=== PATIENT | female | born 1945 | race Caucasian/White ===

== ENCOUNTER → 2016-10-06 | Outpatient (CLI) | payer OTHER ==
--- NOTE | 2016-10-06 15:23 | MA ---
Right Diagnostic Mammogram Indication: Right breast invasive lobular carcinoma diagnosed in January 2016. Six-month post lumpecto my evaluation. Technique: 2D CC, synthesized 2D MLO, and diagnostic MLO tomosynthesis acquisition of the right [address]. The mammograms were processed with iCAD analysis. Breast Density: Type B Comparison: Screening and diagnostic mammograms dating back to December 2011. Findings: A benign lumpectomy scar resides in the upper inner right breast. No round circumscribed hematoma. The right breast has expected minimal skin thickening from radiation therapy. No new mass or malignant-type calcification. Impression: Benign lumpectomy scar upper inner right breast. BI-RADS 2: Benign Finding. Recommendation: Bilateral screening mammography due in January 2017, unless otherwise clinically indica rajat. 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
== END ==
LOC: FIMAGING 14:04
PROVIDERS: ATTEND Surgery
DX: C50.011 Malignant neoplasm of nipple and areola, right female breast (principal); Z98.890 Other specified postprocedural states
CPT/HCPCS: G0206

== ENCOUNTER 2016-11-26 05:49 | Day surgery (SDC) | payer OTHER ==
--- NOTE | 2016-11-25 11:42 | GHP ---
[f rep st] PREOP HISTORY AND PHYSICAL DATE OF PROCEDURE: 11/26/2016. PROCEDURE: Hysteroscopy with morcellation of endometrial tissue. INDICATION: Postmenopausal bleeding. HISTORY OF PRESENT ILLNESS: The patient is a 71-year-old 1, para 1-0-0-1, who has been on h ormone replacement since menopause, until she was diagnosed with stage IA invasive lobular carcinoma in 01/2016. Patient underwent discontinued hormone replacement at that time and she underwent a jose mpectomy plus radiation. Her sentinel node biopsy was negative. Patient was started on aromatase inhibitor and ultimately switched to letrozole. The patient starte d having bright red vaginal bleeding in 10/2014. She came in for a pelvic ultrasound. It showed a uterus measuring 9 x 5.8 x 6.3 cm with an endometrium measuring 0.95 cm, which is slightly cystic in appearance. She has an anterior submucosal fibroid measuring 1.6 x 1.5 x 1.6 cm and a posterior christy bserosal fibroid measuring 1.7 x 1.9 x 2 cm. Her right ovary has 2 small simple follicle-like areas measuring 5 mm each. The left ovary has a simple area measuring 12 x 12 x 10 mm. Management options have been reviewed extensively with the patient, including endometrial biopsy wit hin the office and hysteroscopy with morcellation of endometrial tissue. Patient wishes to proceed with a hysteroscopy with morcellation of endometrial tissue. Risks and benefits of the procedure rivera ve been extensively reviewed with the patient. The patient has been properly consented. MEDICAL HISTORY: Obesity, endometriosis, stage IA invasive lobular breast carcinoma diagnosed in , hypertension, hypothyroidism, hyperlipidemia, gout, history of gastric ulcer, type 2 diabetes. MEDICATIONS: Levothyroxine 150 mcg a day. Lipitor 10 mg a day. Lisinopril 20 mg a day. Hydrochlo rothiazide/triamterene 25 mg/37.5 mg. Pantoprazole 20 mg a day. Allopurinol 300 mg a day. Letrozo le 2.5 mg a day. The patient takes a baby aspirin a day, as well as vitamin D. She takes Xanax and Nasacort as needed, as well as muscle relaxers and tramadol as needed. SURGICAL HISTORY: Patient has had a breast lumpectomy, laparoscopy with ablation of endometriosis, laparoscopic myomectomy x2, multiple colonoscopies, foot surgery, tonsillectomy and adenoidectomy, a nd tubal ligation. ALLERGIES: No known drug allergies. SOCIAL HISTORY: Patient is . She denies tobacco or drug use. She does 1 or 2 alcoholic janel erages a month. FAMILY MEDICAL HISTORY: Noncontributory. 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 She had a spontaneous vaginal delivery in 1966, uncomplicated . The patient denies any history of any abnormal Pap smears or sexually lopez smitted diseases. PHYSICAL EXAM: VITAL SIGNS: Stable. Her weight is 206.2. Her blood pressure is 104/60. Her hear t rate is regular regular. GENERAL APPEARANCE: Alert and oriented x3. LUNGS: Clear to auscultati on bilaterally. ABDOMEN: Obese, soft, nondistended, nontender. EXTREMITIES: Reveal no calf tende rness or edema. PELVIC: Exam was deferred at this time. However, was performed at the end of last year, which showed a mobile midposition uterus with no adnexal masses. Pelvic ultrasound was descr ibed above. ASSESSMENT AND PLAN: A 71-year-old, 1, para 1-0-0-1, with postmenopausal bleeding and a thi ckened endometrium. She will undergo a hysteroscopy with morcellation of endometrial tissue. She i s aware that if the pathology is abnormal, she will need to have further procedures done at that [facility] /[id number]/MODL
[2016-11-26] MEDS ORDERED: LIDOCAINE 1% 2 ML INJ ONE (06:30)
[2016-11-26] MEDS ORDERED: LIDOCAINE 1% 5 ML SDV ID PRN (06:57)
[2016-11-26] MEDS ORDERED: LR 1,000 ML IV ONE (06:57)
[2016-11-26] MEDS ORDERED: SILVER NITRATE APPLICATOR 1 APPL TP ONE (07:00)
[2016-11-26] MEDS ORDERED: MIDAZOLAM 2 MG/2 ML VIAL ONE (07:05)
[2016-11-26] MEDS ORDERED: SCOPOLAMINE HYDROBROMIDE 1.5 MG PATCH TD ONE (07:05)
[2016-11-26] MEDS ORDERED: PROPOFOL/EMULSION 500 MG/50 ML BOTTLE IV ONE (07:10)
[2016-11-26] MEDS ORDERED: LIDOCAINE 2% 100 MG/5 ML SYR ONE (07:10)
[2016-11-26] MEDS ORDERED: fentaNYL 100 MCG/2 ML INJ ONE (07:21)
--- NOTE | 2016-11-26 10:51 | GOP ---
[f rep st] OPERATIVE REPORT DATE OF OPERATION: 11/26/2016 SURGEON: Nadia Walsh DO ANESTHESIA: Sedation. PREOPERATIVE DIAGNOSIS: Postmenopausal bleeding. POSTOPERATIVE DIAGNOSIS: Postmenopausal bleeding plus fibroids. PROCEDURE PERFORMED: FINDINGS: 1. Exam under anesthesia: Mobile midposition uterus with no adnexal masses. 1. Hysteroscopic findings: Slightly thickened endometrium with 2 anterior submucosal fibroids. 2. SPECIMENS: Endometrial and fibroid curettings. ESTIMATED BLOOD LOSS: 10 cc. INDICATIONS: Patient is a 71-year-old, 1, para 1-0-0-1, who had been on hormone replacement since menopause until she was diagnosed with breast cancer. Patient discontinued hormone replaceme nt last year and underwent a lumpectomy plus radiation. She was started on aromatase inhibitor and then switched to letrozole. Patient had an episode of bright red vaginal bleeding on 11/17/2016. S he came in for a pelvic ultrasound, which showed a uterus measuring 9 x 5.8 x 6.3 cm with an endomet rium measuring 0.95 cm with a slightly cystic appearance. She had an anterior submucosal fibroid me asuring 1.6 x 1.5 x 1.6 cm and a posterior subserosal fibroid measuring 1.7 x 1.9 x 2 cm. Her ovari es were overall unremarkable. Management options were reviewed with the patient including endometri al biopsy within the office versus hysteroscopy with morcellation of endometrial tissue. The patien t elected to proceed with a hysteroscopy with morcellation of any endometrial tissue. Risks and selene efits of the procedure have been reviewed with the patient. The patient has been properly consented . DESCRIPTION OF PROCEDURE: Patient was taken to the operating room with intravenous fluids in place. She was then placed on the operating room table in the dorsal supine position where sedation was o btained. She was then repositioned into the dorsal lithotomy position with the Vivien aguillon an d prepped and draped in the normal sterile fashion. Exam under anesthesia revealed a mobile mid pos ition uterus with no adnexal masses. A speculum was then placed in the patient's vagina. An Allis clamp was used to grasp the anterior lip of the cervix. The cervix was then carefully dilated to al low for introduction of a small operative hysteroscope. The hysteroscope was introduced with fluid medium running. The polyp blade was then introduced, and a circumferential curettage was performed. However, it was difficult to visualize and there were 2 polyps that were not able to be removed because it was the polyp blade. So the hysteroscope was then withdrawn and the cervix was then carefully dilated to al low for the larger operative hysteroscope. The hysteroscope was then reintroduced and a circumferen tial curettage was performed. There were 2 anterior submucosal fibroids noted, and these were attem pted to be as much removed as possible as they were very hard and calcified. The bilateral tubal os tia were visualized following the completion of the procedure. The endometrial tissue was morcellat ed down. Following completion of the procedure, instruments were then removed from the patient's va johnnie. Bleeding was noted to be minimal. Patient was returned to the dorsal supine position where s he was easily awoken from anesthesia. Sponge count was correct. The patient was transported to rec overy room in stable condition. /[id number]/MODL
== END 2016-11-26 09:40 | disposition home or self-care (01) ==
LOC: FSGY 05:49
PROVIDERS: ATTEND Obstetrics & Gynecology
DX: N95.0 Postmenopausal bleeding (principal); D25.0 Submucous leiomyoma of uterus; E11.9 Type 2 diabetes mellitus without complications; R60.9 Edema, unspecified; I10 Essential (primary) hypertension; E78.00 Pure hypercholesterolemia, unspecified; E03.9 Hypothyroidism, unspecified; Z85.3 Personal history of malignant neoplasm of breast
CPT/HCPCS: 58561; 58563; C1782; J2001; J2250; J2704; J3010

== ENCOUNTER → 2017-02-11 | Outpatient (CLI) | payer OTHER | LOC: FIMAGING 14:41 | PROVIDERS: ATTEND Internal Medicine Hematology & Oncology | DX: Z12.31 Encounter for screening mammogram for malignant neoplasm of breast (principal); Z85.3 Personal history of malignant neoplasm of breast | CPT/HCPCS: G0202 ==

== ENCOUNTER → 2018-03-09 | Outpatient (CLI) | payer OTHER | LOC: FIMAGING 12:53 | PROVIDERS: ATTEND Internal Medicine Hematology & Oncology | DX: Z12.31 Encounter for screening mammogram for malignant neoplasm of breast (principal); Z85.3 Personal history of malignant neoplasm of breast ==